=== PATIENT | male | born 1965 | race Caucasian/White ===

== ENCOUNTER 2020-11-24 19:52 | Emergency (ER) | payer MEDICAID ==
[~2020-11-24] VITALS: Ht 167.6 cm; Wt 68.0 kg
[2020-11-24 20:15] VITALS: BP 125/78
--- NOTE | 2020-11-24 20:15 | NUR ---
TO [facility] AMB[facility]AT[facility]
--- NOTE | 2020-11-24 20:40 | NUR ---
SEEN AND EXAMINED BY DAY WITH ORDER, CARRIED OUT
--- NOTE | 2020-11-24 20:50 | NUR ---
SWAB FOR NOVEL DONE , AND SENT TO LAB
[2020-11-24] MEDS ORDERED: IBUP-2213 PO (20:51)
[2020-11-24] MEDS ORDERED: PRED20TA5 PO (20:51)
[2020-11-24 21:35] VITALS: BP 125/78
--- NOTE | 2020-11-24 21:35 | NUR ---
Patient discharged with v/s stable. Written and verbal after care instructions given and explained. Patient alert, oriented and verbalized understanding of instructions. Ambulatory with steady gait. All questions addressed prior to discharge. ID band removed. Patient advised to follow up with PMD. Rx of IBUPROFEN , PREDNISONE given. Patient educated on indication of medication including possible reaction and side effects. Opportunity to ask questions provided and answered.
== END 2020-11-24 21:35 | disposition home or self-care (01) ==
LOC: MED 19:52
DX: R05 Cough (principal); R43.9 Unspecified disturbances of smell and taste; R07.9 Chest pain, unspecified; Z20.822 Contact with and (suspected) exposure to COVID-19
CPT/HCPCS: 99283; U0003

== ENCOUNTER 2023-03-06 09:03 | Emergency (ER) | payer MEDICAID ==
[~2023-03-06] VITALS: Ht 172.7 cm; Wt 79.4 kg
[~2023-03-06 09:03] MED LIST: IBUP-2213 PO; PRED20TA5 PO
[2023-03-06 09:04] VITALS: BP 124/79; PULSE 74; RESP 17; TEMP 97.4; O2SAT 97
[2023-03-06] MEDS ORDERED: ONDA-188 SL (09:17)
[2023-03-06] MEDS ORDERED: MAG355OR2 PO (09:17)
[2023-03-06 09:29] VITALS: BP 124/79; PULSE 74; RESP 17; TEMP 97.4; O2SAT 97
== END 2023-03-06 09:29 ==
LOC: MED 09:03
DX: K29.70 Gastritis, unspecified, without bleeding (principal); Z79.899 Other long term (current) drug therapy
CPT/HCPCS: 99283